=== PATIENT | male | born 1945 | race Two or more races ===

== ENCOUNTER 2016-07-25 10:03 | Inpatient (IN) | payer OTHER ==
[2016-07-25 10:28] VITALS: BMI 20.9
--- NOTE | 2016-07-25 13:28 | HP ---
CIWA Score - CIWA Score Nausea/Vomitin-No Nausea/No Vomiting Muscle Tremors: 4-Moderate,w/Arms Extend Anxiety: 3 Agitation: 4-Moderately Restless Paroxysmal Sweats: 3 Orientation: 0-Oriented Tacttile Disturbances: 0-None Auditory Disturbances: 0-None Visual Disturbances: 0-None Headache: 0-None Present CIWA-Ar Total Score: 14 Admission ROS BHS - HPI Chief Complaint: I am here to detox off the alcohol then go to rehab. Allergies/Adverse Reactions: Allergies Allergy/AdvReac Type Severity Reaction Status Date / Time penicillin G Allergy Severe Hives Verified 07/25/16 13:03 History of Present Illness: pt is a 71yr old male with a history of alcohol dependence seeking detox for treatment. pt has a h/o oral cancer, was diagnosed 07/2015 and tumor removed 2015. pt denies of having received any chemo or radiation tx. Exam Limitations: Physical Impairment (oral sx there fore speaks with a little slur.) - Ebola screening Have you traveled outside of the country in the last 21 days: No Have you had contact with anyone from an Ebola affected area: No Have you been sick,other than usual withdrawal symptoms: No Do you have a fever: No - Review of Systems Constitutional: Chills, Diaphoresis, Loss of Appetite, Night Sweats, Changes in sleep EENT: reports: No Symptoms Reported Respiratory: reports: No Symptoms reported Cardiac: reports: No Symptoms Reported GI: reports: Poor Appetite, Poor Fluid Intake : reports: Urgency, Other (urinary incontinence pt uses pull-ups) Musculoskeletal: reports: Back Pain Integumentary: reports: Flushing, Sweating Neuro: reports: Tingling, Tremors Endocrine: reports: Excessive Sweating, Flushing, Intolerance to Cold, Intolerance to Heat Hematology: reports: No Symptoms Reported Psychiatric: reports: Judgement Intact, Mood/Affect Appropiate, Orientated x3, Agitated, Anxious Other Systems: Reviewed and Negative Patient History - Patient Medical History Hx Anemia: No Hx Asthma: No Hx Chronic Obstructive Pulmonary Disease (COPD): No Hx Cancer: Yes (oral cancer dx 07/2015 and surgery of tumor removal 12/2015) Hx Cardiac Disorders: No Hx Congestive Heart Failure: No Hx Hypertension: Yes Hx Hypercholesterolemia: No Hx Pacemaker: No HX Cerebrovascular Accident: No Hx Seizures: No Hx Dementia: No Hx Diabetes: No Hx Gastrointestinal Disorders: No Hx Liver Disease: No Hx Genitourinary Disorders: No Hx Sexually Transmitted Disorders: No Hx Renal Disease (ESRD): No Hx Thyroid Disease: No Hx Human Immunodeficiency Virus (HIV): No (negative) Hx Hepatitis C: No (negative) Hx Depression: Yes Hx Suicide Attempt: No (denies) Hx Bipolar Disorder: No Hx Schizophrenia: No - Patient Surgical History Past Surgical History: Yes Hx Neurologic Surgery: No Hx Cataract Extraction: No Hx Cardiac Surgery: No Hx Lung Surgery: No Hx Breast Surgery: No Hx Breast Biopsy: No Hx Abdominal Surgery: No Hx Appendectomy: No Hx Cholecystectomy: No Hx Genitourinary Surgery: No Hx Section: No Hx Orthopedic Surgery: No Other Surgical History: upper leg sx at age 14/mouth ca in 12/14/2015 - PPD History Previous Implant?: Yes Documented Results: Negative w/o proof Implanted On Prior R Admission?: No PPD to be Administered?: Yes - Reproductive History Patient is a Female of Child Bearing Age (11 -55 yrs old): No - Smoking Cessation Smoking history: Current every day smoker Have you smoked in the past 12 months: Yes Aproximately how many cigarettes per day: 15 Hx Chewing Tobacco Use: No Initiated information on smoking cessation: Yes 'Breaking Loose' booklet given: 07/25/16 - Substance & Tx. History Hx Alcohol Use: Yes Hx Substance Use: No Substance Use Type: Alcohol Hx Substance Use Treatment: Yes - Substances Abused Alcohol-beer Route: Oral Frequency: Daily Amount used: 15 (16 oz.) Age of first use: 16 Date of Last Use: 07/25/16 Family Disease History - Family Disease History Family Disease History: CA: Father (colon ca ), Brother (prostate ca/ throat ca deased) Admission Physical Exam BHS - Vital Signs Vital Signs: Vital Signs - 24 hr 07/25/16 10:25 Temperature 96.8 F L Pulse Rate 80 Respiratory 18 Rate Blood Pressure 160/102 - Physical General Appearance: Yes: Appropriately Dressed, Moderate Distress, Tremorous, Irritable, Sweating, Anxious HEENTM: Yes: Hearing grossly Normal, Normal Voice, Other (oral cancer tx 12/2015 ) Respiratory: Yes: Lungs Clear, Normal Breath Sounds, No Respiratory Distress Neck: Yes: No masses,lesions,Nodules Breast: Yes: Within Normal Limits Cardiology: Yes: Regular Rhythm, Regular Rate, S1, S2 Abdominal: Yes: Normal Bowel Sounds, Non Tender, Soft Genitourinary: Yes: Within Normal Limits Back: Yes: Normal Inspection Musculoskeletal: Yes: full range of Motion Extremities: Yes: Normal Inspection, Non-Tender, Tremors Neurological: Yes: Fully Oriented, Alert, Normal Response Integumentary: Yes: Normal Color, Diaphoresis Lymphatic: Yes: Within Normal Limits - Diagnostic (1) Alcohol dependence with uncomplicated withdrawal Current Visit: Yes Status: Chronic (2) Nicotine dependence Current Visit: Yes Status: Chronic Qualifiers: Nicotine product type: cigarettes Substance use status: uncomplicated Qualified Code(s): F17.210 - Nicotine dependence, cigarettes, uncomplicated (3) History of oral cancer Current Visit: No Status: Resolved Cleared for Admission [facility] - Detox or Rehab [facility] Level of Care: Medically Managed Detox Regimen/Protocol: Librium [facility] Breath Alcohol Content Breath Alcohol Content: 0.092 Urine Drug Screen - Results Drug Screen Negative: Yes
[2016-07-25] MEDS ORDERED: LOPERAMIDE HCL 2 MG CAPSULE PO PRN (16:28)
[2016-07-25] MEDS ORDERED: diphenhydrAMINE HCL 50 MG CAPSULE PO PRN (16:28)
[2016-07-25] MEDS ORDERED: MENTHOL/PHENOL 1 EACH UD MM PRN (16:28)
[2016-07-25] MEDS ORDERED: hydrOXYzine PAMOATE 50 MG CAPSULE (FP) PO PRN (16:28)
[2016-07-25] MEDS ORDERED: guaiFENesin/D-METHORPHAN HB 10 ML UNIT-DOSE CUPS PO PRN (16:28)
[2016-07-25] MEDS ORDERED: chlordiazePOXIDE HCL 25 MG CAPSULE PO PRN (16:28)
[2016-07-25] MEDS ORDERED: ACETAMINOPHEN 325 MG TABLET (FP) PO PRN (16:28)
[2016-07-25] MEDS ORDERED: MAGNESIUM CITRATE 300 ML BOTTLE PO PRN (16:28)
[2016-07-25] MEDS ORDERED: MAGNESIUM HYDROX 2400MG/30ML ORAL SUSPENSION 30 ML CUP PO PRN (16:28)
[2016-07-25] MEDS ORDERED: P-EPHED 60MG/TRIPROLIDI 2.5MG TABLET PO PRN (16:28)
[2016-07-25] MEDS ORDERED: IBUPROFEN 400 MG TABLET (FP) PO PRN (16:28)
[2016-07-25] MEDS ORDERED: MAG HYDROX/AL HYDROX/SIMETH 30 ML UNIT-DOSE CUP PO PRN (16:28)
[2016-07-25] MEDS: chlordiazePOXIDE HCL 25 MG CAPSULE PO SCH ×2 (16:56→22:22)
[2016-07-25] MEDS: THIAMINE HCL 100 MG TABLET (FP) PO SCH (22:22)
[2016-07-26 00:08] LABS: URINE APPEARANCE CLEAR; URINE BILIRUBIN NEGATIVE (NEGATIVE); URINE BLOOD NEGATIVE (NEGATIVE); URINE COLOR COLORLESS; URINE GLUCOSE (UA) NEGATIVE (NEGATIVE); URINE KETONE NEGATIVE (NEGATIVE); URINE LEUK ESTERASE NEGATIVE (NEGATIVE); URINE NITRITE NEGATIVE (NEGATIVE); URINE PROTEIN NEGATIVE (NEGATIVE); URINE UROBILINOGEN NEGATIVE E.U./dl (0.2-1.0)
[2016-07-26] MEDS: chlordiazePOXIDE HCL 25 MG CAPSULE PO SCH ×4 (05:39→22:10)
--- NOTE | 2016-07-26 10:02 | EKG ---
Test Reason : Blood Pressure : / mmHG Vent. Rate : 073 BPM Atrial Rate : 073 BPM P-R Int : 176 ms QRS Dur : 090 ms QT Int : 418 ms P-R-T Axes : 062 -04 033 degrees QTc Int : 460 ms NORMAL SINUS RHYTHM SEPTAL INFARCT , AGE UNDETERMINED ABNORMAL ECG NO PREVIOUS ECGS AVAILABLE Confirmed by DARCY ROQUE MD ([id number]) on 07/26/2016 10:02:03 AM Referred By: Almas Cadena Confirmed By:DARCY ROQUE MD
[2016-07-26 10:21] LABS: MCH 34.4 pg (25.7-33.7); MCHC 33.7 g/dl (32.0-35.9); PLATELET COUNT 232 K/MM3 (134-434); RDW 15.2 % (11.9-15.9); WHITE BLOOD COUNT 6.2 K/mm3 (4.0-10.0)
[2016-07-26] MEDS: amLODIPine BESYLATE 5 MG TABLET (FP) PO SCH (10:34)
[2016-07-26] MEDS: PRENATAL VITAMINS W/ FOLIC ACID TABLET (FP) PO SCH (10:34)
[2016-07-26] MEDS: NICOTINE 21 MG/24 HOURS TOPICAL PATCH TD SCH (10:35)
[2016-07-26 10:57] LABS: ALBUMIN 4.3 g/dl (3.4-5.0); ALK PHOS 96 U/L (45-117); ANION GAP 11 (8-16); BILIRUBIN,TOTAL 0.4 mg/dL (0.2-1.0); CALCIUM 8.7 mg/dL (8.5-10.1); CO2 28 mmol/L (21-32); CREATININE 0.8 mg/dL (0.7-1.3); GLUCOSE,RANDOM 89 mg/dL (74-106); SGOT/AST 34 U/L (15-37); SGPT/ALT 36 U/L (12-78); TOT PROT 8.3 g/dl (6.4-8.2)
--- NOTE | 2016-07-26 11:55 | CONSULT ---
[facility] Psychiatric Consult - Data Date of interview: 07/26/16 Admission source: [facility] Identifying data: First admission to [facility] for this 71 y/o male seeeking detox treatment for alcohol dependence.Patient is ,a father of three (only daughters),domiciled,living in penitentiary and supported on Social Security funds augmented with Veterans benefits. Substance Abuse History: - Smoking Cessation. Smoking history: Current every day smoker. Have you smoked in the past 12 months: Yes. Aproximately how many cigarettes per day: 15. Hx Chewing Tobacco Use: No. Initiated information on smoking cessation: Yes. 'Breaking Loose' booklet given: 07/25/16. - Substance & Tx. History. Hx Alcohol Use: Yes. Hx Substance Use: No. Substance Use Type : Alcohol. Hx Substance Use Treatment: Yes. - Substances Abused. Alcohol- beer. Route: Oral. Frequency: Daily. Amount used: 15 (16 oz.). Age of first use: 16. Date of Last Use: 07/25/16. Confirmed by patient. Medical History: Hypertension,urinary incontinence and recent history of surgery (oral cancer). Psychiatric History: No reported history of psychiatric hospitalizations.No OPD care.Patient indicates that he is on mirtazapine 45 mg/hs (insomnia) prescribed by his primary care doctor.He states that he has not taken this drug for past five days and that he uses it " on and off ".Mr Rodrigues reports that he was diagnosed with MDD and Anxiety Disorder in 1991 (by primary care physician).No history of suicide attempts. Physical/Sexual Abuse/Trauma History: Patient denies history of sexual abuse. Additional Comment: Drug Screen is negative. Mental Status Exam - Mental Status Exam Alert and Oriented to: Place, Person Cognitive Function: Good Patient Appearance: Well Groomed Mood: Hopeful (calm) Affect: Appropriate, Normal Range Patient Behavior: Fatigued, Appropriate (friendly), Cooperative Speech Pattern: Clear, Slurred (due to recent oral surgery) Voice Loudness: Normal Thought Process: Goal Oriented Thought Disorder: Not Present Hallucinations: Denies Suicidal Ideation: Denies Homicidal Ideation: Denies Insight/Judgement: Poor (as evidenced by heavy consumption of alcohol) Sleep: Poorly, Difficulty falling asleep Appetite: Fair Muscle strength/Tone: Normal (no complaint offered) Gait/Station: Normal Psychiatric Findings - Problem List ([place] 1, 2,3) (1) Alcohol dependence with uncomplicated withdrawal Current Visit: Yes Status: Acute (2) Nicotine dependence Current Visit: Yes Status: Acute Qualifiers: Nicotine product type: cigarettes Substance use status: uncomplicated Qualified Code(s): F17.210 - Nicotine dependence, cigarettes, uncomplicated (3) Alcohol-induced mood disorder Current Visit: Yes Status: Suspected (4) Insomnia Current Visit: Yes Status: Acute - Initial Treatment Plan Initial Treatment Plan: Psychoeducation.Detoxification in progress.Medication : remeron 7.5 mg po hs (reduced).Side effects/benefits discussed with the patient.Basic principles of sleep hygiene are reviewed with patient as well.He is in agreement with this plan of care.Observation.
--- NOTE | 2016-07-26 15:54 | PN ---
[facility] CIWA - CIWA Score Nausea/Vomitin-Mild Nausea/No Vomiting Muscle Tremors: 4-Moderate,w/Arms Extend Anxiety: 2 Agitation: 1-Slight > Activity Paroxysmal Sweats: 3 Orientation: 0-Oriented Tacttile Disturbances: 0-None Auditory Disturbances: 2-Mild Harshness/Frighten Visual Disturbances: 3-Moderate Sensitivity Headache: 0-None Present CIWA-Ar Total Score: 16 BHS Progress Note (SOAP) Subjective: Tremors, Fatigue, Sweating. Objective: PT. A & O X 3. NO ACUTE DISTRESS. PATIENT DENIES CHEST PAIN. 07/26/16 15:52 Vital Signs Temperature 98.4 F 07/26/16 14:05 Pulse Rate 91 H 07/26/16 14:05 Respiratory Rate 18 07/26/16 14:05 Blood Pressure 136/85 07/26/16 14:05 O2 Sat by Pulse Oximetry (%) Laboratory Tests 07/25/16 07/26/16 07/26/16 20:21 06:10 06:10 WBC 6.2 RBC 4.20 Hgb 14.4 Hct 42.8 MCV 102.0 H MCHC 33.7 RDW 15.2 Plt Count 232 MPV 9.0 Sodium 142 Potassium 4.3 Chloride 103 Carbon Dioxide 28 Anion Gap 11 BUN 6 L Creatinine 0.8 Creat Clearance w eGFR > 60 Random Glucose 89 Calcium 8.7 Total Bilirubin 0.4 AST 34 ALT 36 Alkaline Phosphatase 96 Total Protein 8.3 H Albumin 4.3 Urine Color Colorless Urine Appearance Clear Urine pH 5.0 Ur Specific [place] < 1.005 L Urine Protein Negative Urine Glucose (UA) Negative Urine Ketones Negative Urine Blood Negative Urine Nitrite Negative Urine Bilirubin Negative Urine Urobilinogen Negative Ur Leukocyte Esterase Negative LABS NOTED. Assessment: 07/26/16 15:53 WITHDRAWAL SYMPTOMS. Plan: CONTINUE DETOX.
[2016-07-26] MEDS: MIRTAZAPINE 15 MG TABLET (FP) PO SCH (22:10)
[2016-07-26] MEDS: THIAMINE HCL 100 MG TABLET (FP) PO SCH (22:10)
[2016-07-27] MEDS: chlordiazePOXIDE HCL 25 MG CAPSULE PO SCH ×2 (05:28→10:16)
[2016-07-27] MEDS: amLODIPine BESYLATE 5 MG TABLET (FP) PO SCH (10:16)
[2016-07-27] MEDS: PRENATAL VITAMINS W/ FOLIC ACID TABLET (FP) PO SCH (10:16)
[2016-07-27] MEDS: NICOTINE 21 MG/24 HOURS TOPICAL PATCH TD SCH (10:17)
--- NOTE | 2016-07-27 13:19 | PN ---
S CIWA - CIWA Score Nausea/Vomitin Muscle Tremors: 4-Moderate,w/Arms Extend Anxiety: 3 Agitation: 3 Paroxysmal Sweats: No Perspiration Orientation: 0-Oriented Tacttile Disturbances: 0-None Auditory Disturbances: 0-None Visual Disturbances: 0-None Headache: 3-Moderate CIWA-Ar Total Score: 16 BHS Progress Note (SOAP) Subjective: Sweating, anxious, interrupted sleep Objective: 07/27/16 13:17 Last Vital Signs Temp Pulse Resp BP Pulse Ox 97.5 F L 82 18 142/88 07/27/16 13:14 07/27/16 13:14 07/27/16 13:14 07/27/16 13:14 Laboratory Tests 07/25/16 07/26/16 07/26/16 20:21 06:10 06:10 WBC 6.2 RBC 4.20 Hgb 14.4 Hct 42.8 MCV 102.0 H MCHC 33.7 RDW 15.2 Plt Count 232 MPV 9.0 Sodium 142 Potassium 4.3 Chloride 103 Carbon Dioxide 28 Anion Gap 11 BUN 6 L Creatinine 0.8 Creat Clearance w eGFR > 60 Random Glucose 89 Calcium 8.7 Total Bilirubin 0.4 AST 34 ALT 36 Alkaline Phosphatase 96 Total Protein 8.3 H Albumin 4.3 Urine Color Colorless Urine Appearance Clear Urine pH 5.0 Ur Specific [place] < 1.005 L Urine Protein Negative Urine Glucose (UA) Negative Urine Ketones Negative Urine Blood Negative Urine Nitrite Negative Urine Bilirubin Negative Urine Urobilinogen Negative Ur Leukocyte Esterase Negative RPR Titer 07/26/16 06:10 WBC RBC Hgb Hct MCV MCHC RDW Plt Count MPV Sodium Potassium Chloride Carbon Dioxide Anion Gap BUN Creatinine Creat Clearance w eGFR Random Glucose Calcium Total Bilirubin AST ALT Alkaline Phosphatase Total Protein Albumin Urine Color Urine Appearance Urine pH Ur Specific [place] Urine Protein Urine Glucose (UA) Urine Ketones Urine Blood Urine Nitrite Urine Bilirubin Urine Urobilinogen Ur Leukocyte Esterase RPR Titer Nonreactive Labs noted Assessment: 07/27/16 13:18 Withdrawal symptoms Plan: Continue detox
[2016-07-27] MEDS: chlordiazePOXIDE 5 MG CAPSULE PO SCH ×2 (17:21→22:20)
[2016-07-27] MEDS: THIAMINE HCL 100 MG TABLET (FP) PO SCH (22:20)
[2016-07-27] MEDS: MIRTAZAPINE 15 MG TABLET (FP) PO SCH (22:20)
[2016-07-28] MEDS: chlordiazePOXIDE 5 MG CAPSULE PO SCH (05:36)
[2016-07-28 06:25] VITALS: BP 150/89; PULSE 69; TEMP 97.1
--- NOTE | 2016-07-28 08:52 | DS ---
[facility] Detox Discharge Summary Admission Date: 07/25/16 Discharge Date: 07/28/16 - History Present History: Alcohol Dependence Pertinent Past History: insomnia Oral cancer - Physical Exam Results Vital Signs: Vital Signs Temperature 97.1 F L 07/28/16 06:25 Pulse Rate 69 07/28/16 06:25 Respiratory Rate 18 07/28/16 06:25 Blood Pressure 150/89 07/28/16 06:25 O2 Sat by Pulse Oximetry (%) Pertinent Admission Physical Exam Findings: Withdrawal Sx. Laboratory Last Values WBC 6.2 K/mm3 (4.0-10.0) 07/26/16 06:10 RBC 4.20 M/mm3 (4.00-5.60) 07/26/16 06:10 Hgb 14.4 GM/dL (11.7-16.9) 07/26/16 06:10 Hct 42.8 % (35.4-49) 07/26/16 06:10 MCV 102.0 fl (80-96) H 07/26/16 06:10 MCHC 33.7 g/dl (32.0-35.9) 07/26/16 06:10 RDW 15.2 % (11.9-15.9) 07/26/16 06:10 Plt Count 232 K/MM3 (134-434) 07/26/16 06:10 MPV 9.0 fl (7.5-11.1) 07/26/16 06:10 Sodium 142 mmol/L (136-145) 07/26/16 06:10 Potassium 4.3 mmol/L (3.5-5.1) 07/26/16 06:10 Chloride 103 mmol/L (98-107) 07/26/16 06:10 Carbon Dioxide 28 mmol/L (21-32) 07/26/16 06:10 Anion Gap 11 (8-16) 07/26/16 06:10 BUN 6 mg/dL (7-18) L 07/26/16 06:10 Creatinine 0.8 mg/dL (0.7-1.3) 07/26/16 06:10 Creat Clearance w eGFR > 60 (>60) 07/26/16 06:10 Random Glucose 89 mg/dL (74-106) 07/26/16 06:10 Calcium 8.7 mg/dL (8.5-10.1) 07/26/16 06:10 Total Bilirubin 0.4 mg/dL (0.2-1.0) 07/26/16 06:10 AST 34 U/L (15-37) 07/26/16 06:10 ALT 36 U/L (12-78) 07/26/16 06:10 Alkaline Phosphatase 96 U/L (45-117) 07/26/16 06:10 Total Protein 8.3 g/dl (6.4-8.2) H 07/26/16 06:10 Albumin 4.3 g/dl (3.4-5.0) 07/26/16 06:10 Urine Color Colorless 07/25/16 20:21 Urine Appearance Clear 07/25/16 20:21 Urine pH 5.0 (5.0-8.0) 07/25/16 20:21 Ur Specific [place] < 1.005 (1.005-1.025) L 07/25/16 20:21 Urine Protein Negative (NEGATIVE) 07/25/16 20:21 Urine Glucose (UA) Negative (NEGATIVE) 07/25/16 20:21 Urine Ketones Negative (NEGATIVE) 07/25/16 20:21 Urine Blood Negative (NEGATIVE) 07/25/16 20:21 Urine Nitrite Negative (NEGATIVE) 07/25/16 20:21 Urine Bilirubin Negative (NEGATIVE) 07/25/16 20:21 Urine Urobilinogen Negative E.U./dl (0.2-1.0) 07/25/16 20:21 Ur Leukocyte Esterase Negative (NEGATIVE) 07/25/16 20:21 RPR Titer Nonreactive (NONREACTIVE) 07/26/16 06:10 labs noted - Treatment Hospital Course: Detox Protocol Followed, Discharged Condition Good Patient has Accepted a Rehab Referral to: / step meetings - Medication Discharge Medications: Ambulatory Orders Amlodipine Besylate [Norvasc -] 5 mg PO DAILY 07/25/16 Mirtazapine [Remeron [DO NOT STOCK]] 45 mg PO HS 07/25/16 - Diagnosis (1) Alcohol dependence with uncomplicated withdrawal Current Visit: Yes Status: Acute (2) Insomnia Current Visit: Yes Status: Acute Qualifiers: Insomnia type: alcohol-induced Qualified Code(s): F10.982 - Alcohol use, unspecified with alcohol-induced sleep disorder (3) Nicotine dependence Current Visit: Yes Status: Acute Qualifiers: Nicotine product type: cigarettes Substance use status: uncomplicated Qualified Code(s): F17.210 - Nicotine dependence, cigarettes, uncomplicated (4) Alcohol-induced mood disorder Current Visit: Yes Status: Suspected - AMA Did Patient Leave Against Medical Advice: No (pt. has constanza't with oral surgeon today to schedule surgery.)
[2016-07-28] MEDS: amLODIPine BESYLATE 5 MG TABLET (FP) PO SCH (09:00)
[2016-07-28] MEDS: PRENATAL VITAMINS W/ FOLIC ACID TABLET (FP) PO SCH (09:00)
[2016-07-28] MEDS: NICOTINE 21 MG/24 HOURS TOPICAL PATCH TD SCH (09:01)
[2016-07-28] MEDS ORDERED: chlordiazePOXIDE HCL 10 MG CAPSULE PO SCH (17:00)
== END 2016-07-28 09:38 | disposition home or self-care (01) | DRG 897 ==
LOC: YASAS 10:03 → Y3N 14:59
PROVIDERS: ADMIT Internal Medicine; ATTEND Internal Medicine
PROC: HZ2ZZZZ Detoxification Services for Substance Abuse Treatment (ICD-10-PCS; principal; 2016-07-25)
DX: F10.230 Alcohol dependence with withdrawal, uncomplicated (principal); F10.24 Alcohol dependence with alcohol-induced mood disorder; F10.282 Alcohol dependence with alcohol-induced sleep disorder; F17.210 Nicotine dependence, cigarettes, uncomplicated; Z85.819 Personal history of malignant neoplasm of unspecified site of lip, oral cavity, and pharynx
CPT/HCPCS: 36415; 80053; 81003; 85027; 86593; 93005; 93010